=== PATIENT | female | born 1960 | race Caucasian/White ===

== ENCOUNTER → 2016-08-24 | Outpatient (CLI) | payer BC ==
[~2016-08-24] VITALS: Ht 170.2 cm; Wt 75.0 kg
[~2016-08-24] MED LIST: ALLEGRA-D 24HR1 T24 PO; ALLERGY SHOT; FLONASE NASAL S16 GM NS; TYLENOL 500MG500 MG PO; ZETIA 10MG TAB10 MG PO
[2016-08-24 10:51] VITALS: BP 144/95; PULSE 79
[2016-08-24 12:08] VITALS: BP 144/86; PULSE 122
[2016-08-24 12:09] VITALS: BP 140/82; PULSE 98
== END ==
LOC: COL.CARD 08-22 10:45
DX: R07.89 Other chest pain (principal)
CPT/HCPCS: A9502; J2785

== ENCOUNTER → 2016-11-16 | Outpatient (CLI) | payer BC | LOC: MC.RAD 07:42 | DX: Z12.31 Encounter for screening mammogram for malignant neoplasm of breast (principal) ==

== ENCOUNTER → 2017-08-27 | Outpatient (CLI) | payer BC | LOC: COL.LAB 11:30 | DX: J11.1 Influenza due to unidentified influenza virus with other respiratory manifestations (principal) ==

== ENCOUNTER → 2017-11-18 | Outpatient (CLI) | payer BC | LOC: MC.RAD 08:06 | DX: Z12.31 Encounter for screening mammogram for malignant neoplasm of breast (principal); Z98.890 Other specified postprocedural states; Z92.3 Personal history of irradiation; Z85.3 Personal history of malignant neoplasm of breast ==

== ENCOUNTER → 2018-11-20 | Outpatient (CLI) | payer BC | LOC: MC.RAD 10:02 | DX: Z12.31 Encounter for screening mammogram for malignant neoplasm of breast (principal); C50.411 Malignant neoplasm of upper-outer quadrant of right female breast ==

== ENCOUNTER → 2019-08-04 | Outpatient (CLI) | payer BC | LOC: COL.RAD 07:32 | DX: R11.0 Nausea (principal) | CPT/HCPCS: A9541 ==

== ENCOUNTER → 2019-09-10 | Outpatient (CLI) | payer BC | LOC: COL.RAD 07:54 | DX: R10.11 Right upper quadrant pain (principal); R14.0 Abdominal distension (gaseous) ==

== ENCOUNTER → 2019-12-21 | Outpatient (CLI) | payer BC | LOC: MC.RAD 15:24 | DX: Z12.31 Encounter for screening mammogram for malignant neoplasm of breast (principal); C50.411 Malignant neoplasm of upper-outer quadrant of right female breast ==

== ENCOUNTER → 2020-01-14 | Outpatient (CLI) | payer BC | LOC: COL.RAD 07:50 | DX: R14.0 Abdominal distension (gaseous) (principal) | CPT/HCPCS: Q9967 ==

== ENCOUNTER → 2020-12-30 | Outpatient (CLI) | payer BC | LOC: MC.RAD 09:19 | DX: Z12.31 Encounter for screening mammogram for malignant neoplasm of breast (principal); C50.411 Malignant neoplasm of upper-outer quadrant of right female breast; Z98.890 Other specified postprocedural states ==

== ENCOUNTER → 2022-01-01 | Outpatient (CLI) | payer BC | LOC: MC.RAD 09:20 | DX: Z12.31 Encounter for screening mammogram for malignant neoplasm of breast (principal); Z85.3 Personal history of malignant neoplasm of breast ==

== ENCOUNTER → 2024-01-06 | Outpatient (CLI) | payer BC | LOC: MC.RAD 08:58 | DX: Z12.31 Encounter for screening mammogram for malignant neoplasm of breast (principal); N64.89 Other specified disorders of breast ==